=== PATIENT | female | born 1990 | race American Indian/Alaskan Native ===

== ENCOUNTER 2016-09-24 16:23 | Emergency (ER) | payer MEDICAID ==
[2016-09-24 17:48] LABS: Bilirubin,Urine NEG (Negative); Blood,Urine NEG (Negative); Ketones,Urine NEG (Negative); Leukocyte Esterase,Urine MOD (Negative); Mucus,Urine FEW /HPF; Nitrite,Urine NEG (Negative); Protein,Urine <15 mg/dL mg/dL (Negative); Urobilinogen,Urine < 2.0 mg/dL (<2.0)
--- NOTE | 2016-09-24 22:48 | Emergency Department Report ---
HPI - General Chief Complaint: Urogenital-Female Time Seen by Provider: 09/24/16 22:41 - HPI HPI: Patient is a 28-year-old female presents to the ED complaining of vaginal discharge with foul odor times one week. Patient describes discharge as white, creamy consistency. She denies any vaginal lesions or pain. She states last menstrual period was 2 weeks ago. Patient reports recent unprotected sex with her friend. She found that recently that her friend is cheating on her. Patient states she noticed a couple of the urine is a bit off and she has noticed a foul order with the discharge. Patient denies any fever, chills, nausea or vomiting vaginal itching, dysuria, vaginal bleeding, dyspareunia. 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 - Surgical History Past Surgical History?: Yes Additional Surgical History: Left lobectomy, Left kidney removal - Social History Smoking Status: Never Smoker Substance Use Type: Non Opiate Pain, Prescribed - Medications Home Medications: Home Medications Medication Instructions Recorded Confirmed Last Taken Type Erythromycin [Erythromycin Ophth 0 gm OS ONCE #1 tube 06/07/15 Unknown Rx Oint] Ciprofloxacin HCl [Ciprofloxacin 500 mg PO BID #14 tablet 05/25/16 Unknown Rx TAB] metroNIDAZOLE [Flagyl TAB] 500 mg PO ONCE #4 tab 09/24/16 Unknown Rx ED Review of Systems ROS: Stated complaint: POSS STD Other details as noted in HPI Constitutional: denies: chills, fever Eyes: denies: eye pain, eye discharge, vision change ENT: denies: ear pain, throat pain Respiratory: denies: cough, shortness of breath, wheezing Cardiovascular: denies: chest pain, palpitations Endocrine: no symptoms reported Gastrointestinal: denies: abdominal pain, nausea, diarrhea Genitourinary: denies: urgency, dysuria, discharge Musculoskeletal: denies: back pain, joint swelling, arthralgia Skin: denies: rash, lesions Neurological: denies: headache, weakness, paresthesias Psychiatric: denies: anxiety, depression Hematological/Lymphatic: denies: easy bleeding, easy bruising Physical Exam - Physical Exam Vital Signs: Vital Signs 09/24/16 16:43 Temperature 97.9 F Pulse Rate 81 Respiratory 16 Rate Blood Pressure 116/70 O2 Sat by Pulse 100 Oximetry Physical Exam: GENERAL: Alert and oriented x3, no apparent distress, Normal Gait, atraumatic. HEAD: Head is normocephalic and a-traumatic. MOUTH:Mouth is well hydrated and without lesions. Patent airways. NECK: Supple. Non edematous, No carotid bruits. No lymphadenopathy or thyromegaly. LUNGS: Symetrical with respiration, No wheezing, no rales or crackles, CTAB. HEART: S1, S2 present, regular rate and rhythm without murmur, no rubs, no gallops. ABDOMEN: No organomegaly was noted,Positive bowel sounds, soft, and non- distended. . Nontender to palpation on all Quadrants, NO CVA tenderness. GENITOURINARY: External genitalia without erythema, exudate or discharge. Vaginal vault is with mild discharge. Cervix is of normal color without lesion. Cervical os is closed. No bleeding noted. Uterus is noted to be of normal size and nontender. Mild cervical motion tenderness. No masses are palpated. The adnexa are without masses or tenderness. NEUROLOGIC: No focal Deficit, Cranial nerves II through XII are grossly intact. No loss of sensation, PSYCHIATRIC: Mood is congruent with affect, denies suicidal or homicidal ideations. SKIN: Warm and dry, No lesions, No ulceration or induration present. ED Course Vital Signs 09/24/16 16:43 Temperature 97.9 F Pulse Rate 81 Respiratory 16 Rate Blood Pressure 116/70 O2 Sat by Pulse 100 Oximetry ED Medical Decision Making - Medical Decision Making 26-year-old female presents with possible STD infection Urinalysis, urine , wet prep, Chlamydia and gonorrhea cultures sent. Urinalysis shows leukorrhea, urine test negative. Wet prep shows many PMNs. Discussed findings with patient. Discussed patient needed to go to health department for further STD screening. Discussed empiric STD treatment today ED. Patient gave in storage and 50 mg of Rocephin IM and 1000mg of Azithro Discussed partner knowledge and treatment. Vital signs stable. Patient is in no acute distress Dicsused with patient no intercourse with her partner until partner has been treated otherwise reinfection [place] occur. 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 Patient verbalization understands and will follow-up. Critical care attestation.: If time is entered above; I have spent that time in minutes in the direct care of this critically ill patient, excluding procedure time. ED Disposition Clinical Impression: STD exposure, Bacterial vaginosis Disposition: DISCHARGED TO HOME OR SELFCARE Is pt being admited?: No Does the pt Need Aspirin: No Condition: Stable Instructions: Sexually Transmitted Diseases (ED), Safe Sex (ED), Bacterial Vaginosis (ED) Prescriptions: metroNIDAZOLE [Flagyl TAB] 500 mg PO ONCE #4 tab Referrals: PRIMARY CARE, [Primary Care Provider] - 3-5 Days [facility] [Outside] - 3-5 Days [facility] [Outside] - 3-5 Days [facility] [Outside] - 3-5 Days Forms: Work/School Release Form(ED), STI Treatment and Prevention Time of Disposition: 00:42
[2016-09-24] MEDS ORDERED: ROCEPHIN IM ONE (23:15)
[2016-09-24] MEDS ORDERED: XYLOCAINE 1% MPF 5 mL INFILTRATI ONE (23:15)
[2016-09-24] MEDS ORDERED: ZITHROMAX PO ONE (23:15)
[2016-09-24 23:16] VITALS: BP 122/76
== END 2016-09-25 00:42 | disposition home or self-care (01) ==
LOC: ED 16:23
DX: N76.0 Acute vaginitis (principal); B96.89 Other specified bacterial agents as the cause of diseases classified elsewhere; Z20.2 Contact with and (suspected) exposure to infections with a predominantly sexual mode of transmission; F32.9 Major depressive disorder, single episode, unspecified; F90.9 Attention-deficit hyperactivity disorder, unspecified type
CPT/HCPCS: 81001; 81025; 87210; 96372; 99284; J0696

== ENCOUNTER 2020-03-05 16:46 | Emergency (ER) | payer MEDICAID, OTHER ==
--- NOTE | 2020-03-05 17:32 | Emergency Department Report ---
Blank Doc - Documentation Documentation: 29-year-old female that presents with some vaginal spotting and pelvic pain s/p fall. This initial assessment/diagnostic orders/clinical plan/treatment(s) is/are subject to change based on patient's health status, clinical progression and re- assessment by fellow clinical providers in the ED. Further treatment and workup at subsequent clinical providers discretion. Patient/guardians urged not to elope from the ED as their condition may be serious if not clinically assessed and managed. Initial orders include: 1- Patient sent to [facility] for further evaluation and treatment 2- labs 3- UA 4- US OB
[2020-03-05 17:33] VITALS: BP 99/43
[2020-03-05 18:16] LABS: Basophils % (Auto) 0.4 % (0.0-1.8); Eosinophils # (Auto) 0.1 K/mm3 (0.0-0.4); Eosinophils % (Auto) 0.7 % (0.0-4.3); Hemoglobin 12.5 gm/dl (10.1-14.3); Lymphocytes % (Auto) 43.4 % (13.4-35.0); Mean Corpuscular HGB Conc 35 % (30-34); Mean Corpuscular Volume 96 fl (79-97); Monocytes # (Auto) 0.5 K/mm3 (0.0-0.8); Monocytes % (Auto) 7.9 % (0.0-7.3); Platelet Count 226 K/mm3 (140-440); Red Blood Count 3.75 M/mm3 (3.65-5.03); Red Cell Distribution Width 13.5 % (13.2-15.2)
--- NOTE | 2020-03-05 21:00 | Ultrasound Report ---
Early obstetrical ultrasound INDICATION: Pelvic pain TECHNIQUE: Transabdominal and endovaginal FINDINGS: Uterus measures 8.3 cm in length. A fundal intrauterine is noted with pole and yolk sac seen. Cardiac activity was documented with heart rate of 130 bpm. Estimated gestat ional age by crown-rump length is 5 weeks 6 days. No obvious abnormalities are seen of the sac or con tents. Right ovary appears within normal limits and measures 2.8 cm in length. Left ovary is mildly prominen t at 4 cm length and shows small cysts measuring up to 11 mm. Ovarian flow is noted bilaterally. Small amount of nonspecific free fluid is seen in the cul-de-sac. IMPRESSION: Normal-appearing early intrauterine Signer Name: Terrell Hickman MD Signed: 03/05/2020 8:55 PM Workstation Name: [id number]
== END 2020-03-05 22:52 | disposition left against medical advice (07) ==
LOC: ED 16:46
DX: O26.851 Spotting complicating pregnancy, first trimester (principal); Z53.21 Procedure and treatment not carried out due to patient leaving prior to being seen by health care provider
CPT/HCPCS: 36415; 76801; 76817; 84702; 85025; 86900; 86901

== ENCOUNTER 2020-03-26 18:58 | Emergency (ER) | payer MEDICAID ==
[2020-03-26 19:19] VITALS: BP 113/60
[2020-03-26 20:10] LABS: Basophils # (Auto) 0.1 K/mm3 (0.0-0.1); Basophils % (Auto) 0.7 % (0.0-1.8); Eosinophils % (Auto) 0.5 % (0.0-4.3); Hematocrit 35.9 % (30.3-42.9); Lymphocytes # (Auto) 2.5 K/mm3 (1.2-5.4); Lymphocytes % (Auto) 26.7 % (13.4-35.0); Mean Corpuscular HGB Conc 33 % (30-34); Mean Corpuscular Volume 99 fl (79-97); Monocytes # (Auto) 0.7 K/mm3 (0.0-0.8); Monocytes % (Auto) 7.8 % (0.0-7.3); Platelet Count 220 K/mm3 (140-440); Red Blood Count 3.63 M/mm3 (3.65-5.03); Red Cell Distribution Width 13.6 % (13.2-15.2)
[2020-03-26 21:13] LABS: Bilirubin,Urine NEG (Negative); Blood,Urine NEG (Negative); Calcium Oxalate Crystals,Urine 1+; Color,Urine Yellow (Yellow); Protein,Urine <15 mg/dL mg/dL (Negative); Urobilinogen,Urine < 2.0 mg/dL (<2.0)
--- NOTE | 2020-03-26 22:58 | Ultrasound Report ---
OBSTETRICAL ULTRASOUND. HISTORY: Abdominal pain. FINDINGS: Imaging was performed transabdominally. A single viable intrauterine is dated 8 w eeks 4 days. heart tones are 171 bpm. No complication identified. The right and left ovaries are nonvisualized. Negative for adnexal mass or fluid. IMPRESSION: 1. Single viable intrauterine dated 8 weeks 4 days. 2. No adnexal abnormality. Signer Name: Mina Bello MD Signed: 03/26/2020 10:53 PM Workstation Name: [id number]
--- NOTE | 2020-03-26 23:03 | Emergency Department Report ---
ED Abdominal Pain HPI - General Chief Complaint: Abdominal Pain Stated Complaint: 8 WKS /BACK PAIN Time Seen by Provider: 03/26/20 22:35 Source: patient Mode of arrival: Ambulatory Limitations: No Limitations - History of Present Illness Initial Comments: Patient is a 29-year-old female who presents for left flank pain times 2 days. Patient states she is 8 weeks she is G2, . 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 Patient denies abnormal vaginal discharge, there is no dysuria, frequency ,urgency, no hematuria. There is been no fever or chills. Symptoms are descri bed at 4/10 cramping. Patient is tolerating p.o. intake at this time there has been no nausea or vomiting. Patient denies concern for STI. MD Complaint: flank pain Migration to: no migration - Related Data Previous Rx's Medication Instructions Recorded Last Taken Type Erythromycin [Erythromycin Ophth 0 gm OS ONCE #1 tube 06/07/15 Unknown Rx Oint] Ciprofloxacin HCl [Ciprofloxacin 500 mg PO BID #14 tablet 05/25/16 Unknown Rx TAB] metroNIDAZOLE [Flagyl TAB] 500 mg PO ONCE #4 tab 09/24/16 Unknown Rx Ketorolac [Toradol] 10 mg PO Q6H PRN #14 tablet 01/30/20 Unknown Rx Methocarbamol [Robaxin] 500 mg PO Q8HR #20 tablet 01/30/20 Unknown Rx Acetaminophen [Acetaminophen TAB] 650 mg PO Q6HR PRN #30 tablet 03/26/20 Unknown Rx Allergies Allergy/AdvReac Type Severity Reaction Status Date / Time No Known Allergies Allergy Unverified 06/07/15 16:06 ED Review of Systems ROS: Stated complaint: 8 WKS /BACK PAIN Other details as noted in HPI Constitutional: denies: chills, fever Eyes: denies: eye pain, eye discharge, vision change ENT: denies: ear pain, throat pain Respiratory: denies: cough, shortness of breath, wheezing Cardiovascular: denies: chest pain, palpitations Endocrine: no symptoms reported Gastrointestinal: abdominal pain (left flank), vomiting. 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 - Surgical History Past Surgical History?: Yes Additional Surgical History: Left lobectomy, Left kidney removal - Social History Smoking Status: Never Smoker Substance Use Type: None - Medications Home Medications: Home Medications Medication Instructions Recorded Confirmed Last Taken Type Erythromycin [Erythromycin Ophth 0 gm OS ONCE #1 tube 06/07/15 Unknown Rx Oint] Ciprofloxacin HCl [Ciprofloxacin 500 mg PO BID #14 tablet 05/25/16 Unknown Rx TAB] metroNIDAZOLE [Flagyl TAB] 500 mg PO ONCE #4 tab 09/24/16 Unknown Rx Ketorolac [Toradol] 10 mg PO Q6H PRN #14 tablet 01/30/20 Unknown Rx Methocarbamol [Robaxin] 500 mg PO Q8HR #20 tablet 01/30/20 Unknown Rx Acetaminophen [Acetaminophen TAB] 650 mg PO Q6HR PRN #30 tablet 03/26/20 Unknown Rx ED Physical Exam - General Limitations: No Limitations General appearance: alert, in no apparent distress - Head Head exam: Present: atraumatic, normocephalic - Eye Eye exam: Present: normal appearance - ENT ENT exam: Present: mucous membranes moist - Neck Neck exam: Present: normal inspection, full ROM. Absent: tenderness - Respiratory Respiratory exam: Present: normal lung sounds bilaterally. Absent: respiratory distress, wheezes, stridor, chest wall tenderness - Cardiovascular Cardiovascular Exam: Present: regular rate, normal rhythm, normal heart sounds. Absent: systolic murmur, diastolic murmur, rubs, gallop - GI/Abdominal GI/Abdominal exam: Present: soft, normal bowel sounds. Absent: distended, tenderness, guarding, rebound, rigid, bruit, hernia - Rectal Rectal exam: Present: deferred - External exam: Present: other (exam deferred by patient ) - Extremities Exam Extremities exam: Present: normal inspection, normal capillary refill. Absent: pedal edema - Back Exam Back exam: Present: normal inspection, full ROM. Absent: tenderness, CVA tenderness (R), CVA tenderness (L) - Neurological Exam Neurological exam: Present: alert, oriented X3, normal gait - Psychiatric Psychiatric exam: Present: normal affect, normal mood - Skin Skin exam: Present: warm, dry, intact, normal color. Absent: rash ED Course Vital Signs 03/26/20 19:14 Temperature 98.3 F Pulse Rate 92 H Respiratory 18 Rate Blood Pressure 113/60 O2 Sat by Pulse 99 Oximetry ED Medical Decision Making - Lab Data Result diagrams: 03/26/20 19:54 Labs 03/26/20 03/26/20 03/26/20 19:54 19:54 Unknown WBC 9.3 RBC 3.63 L Hgb 12.0 Hct 35.9 MCV 99 H MCH 33 H MCHC 33 RDW 13.6 Plt Count 220 Lymph % (Auto) 26.7 [place] % (Auto) 7.8 H Eos % (Auto) 0.5 Baso % (Auto) 0.7 Lymph # 2.5 [place] # 0.7 Eos # 0.0 Baso # 0.1 Seg Neutrophils % 64.3 Seg Neutrophils # 6.0 HCG, Quant [id number] H Urine Color Yellow Urine Turbidity Clear Urine pH 5.0 Ur Specific [place] 1.027 Urine Protein <15 mg/dl Urine Glucose (UA) Neg Urine Ketones Neg Urine Blood Neg Urine Nitrite Neg Urine Bilirubin Neg Urine Urobilinogen < 2.0 Ur Leukocyte Esterase Neg Urine WBC (Auto) 1.0 Urine RBC (Auto) 3.0 U Epithel Cells (Auto) 7.0 Calcium Oxalate Crystal 1+ - Radiology Data Radiology results: report reviewed, image reviewed Findings Reporting MD: Mina Bello Dictation Time: March 26, 2020 21:53 Canceling Machine Operator: Not available Professor Of Pathology Date: OBSTETRICAL ULTRASOUND. HISTORY: Abdominal pain. FINDINGS: Imaging was performed transabdominally. A single viable intrauterine is dated 8 weeks 4 days. heart tones are 171 bpm. No compl ication identified. The right and left ovaries are nonvisualized. Negative for adnexal mass or f luid. IMPRESSION: 1. Single viable intrauterine dated 8 weeks 4 days. 2. No adnexal abnormality. Signer Name: Mina Bello MD Signed: 03/26/2020 9:53 PM Workstation Name: [id number] - Medical Decision Making US: Single IUP , 8weeks and 4 days , FHR: 171 bpm, no abnormalities, HC, pt denies concern for STI, plan: follow up with OBGYN in 2-3 days, return to ed if symptoms worsen. Pt verbalized agreement and understanding of same. Critical care attestation.: If time is entered above; I have spent that time in minutes in the direct care of this critically ill patient, excluding procedure time. ED Disposition Clinical Impression: Abdominal pain during in first trimester Disposition: TO HOME OR SELFCARE Is pt being admited?: No Does the pt Need Aspirin: No Condition: Stable Instructions: (ED), Abdominal Pain (ED) Prescriptions: Acetaminophen [Acetaminophen TAB] 650 mg PO Q6HR PRN #30 tablet PRN Reason: Pain Referrals: LORNA SEPULVEDA MD [Staff Physician] - 2-3 Days Forms: Work/School Release Form(ED) Time of Disposition: 23:11
== END 2020-03-26 23:40 | disposition home or self-care (01) ==
LOC: ED 18:58
DX: O26.891 Other specified pregnancy related conditions, first trimester (principal); R10.9 Unspecified abdominal pain; F32.9 Major depressive disorder, single episode, unspecified; J45.909 Unspecified asthma, uncomplicated; Z3A.01 Less than 8 weeks gestation of pregnancy; Z90.89 Acquired absence of other organs; Z98.890 Other specified postprocedural states; Z79.2 Long term (current) use of antibiotics; Z79.899 Other long term (current) drug therapy
CPT/HCPCS: 36415; 76801; 76802; 81001; 84702; 85025

== ENCOUNTER 2020-04-11 09:23 | Emergency (ER) | payer MEDICAID ==
[2020-04-11 09:31] VITALS: BP 115/54
--- NOTE | 2020-04-11 10:47 | Emergency Department Report ---
ED General Adult HPI - General Chief complaint: Fall Stated complaint: 12 WKS /PAIN Time Seen by Provider: 04/11/20 10:39 Source: patient Mode of arrival: Ambulatory Limitations: No Limitations - History of Present Illness Initial comments: 29 y/o female that is 12 weeks comes in for left low and lower abd pain. since yesterday had a slip this moning on a wet floor at home. Denies any vaginal bleeding, no vaginal discharge. Having increase in urination but no burning. LMP 01/12/20. Complication with a 24 week delivery 8 years ago. - Related Data Previous Rx's Medication Instructions Recorded Last Taken Type Erythromycin [Erythromycin Ophth 0 gm OS ONCE #1 tube 06/07/15 Unknown Rx Oint] Ciprofloxacin HCl [Ciprofloxacin 500 mg PO BID #14 tablet 05/25/16 Unknown Rx TAB] metroNIDAZOLE [Flagyl TAB] 500 mg PO ONCE #4 tab 09/24/16 Unknown Rx Ketorolac [Toradol] 10 mg PO Q6H PRN #14 tablet 01/30/20 Unknown Rx Methocarbamol [Robaxin] 500 mg PO Q8HR #20 tablet 01/30/20 Unknown Rx Acetaminophen [Acetaminophen TAB] 650 mg PO Q6HR PRN #30 tablet 03/26/20 Unknown Rx Allergies Allergy/AdvReac Type Severity Reaction Status Date / Time No Known Allergies Allergy Unverified 06/07/15 16:06 ED Review of Systems ROS: Stated complaint: 12 WKS /PAIN Other details as noted in HPI ED Past Medical Hx - Past Medical History Previous Medical History?: Yes Hx Psychiatric Treatment: Yes (depression, ADHD) Hx Asthma: Yes Additional medical history: 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 - Surgical History Past Surgical History?: Yes Additional Surgical History: Left lobectomy, Left kidney removal - Social History Smoking Status: Never Smoker Substance Use Type: None - Medications Home Medications: Home Medications Medication Instructions Recorded Confirmed Last Taken Type Erythromycin [Erythromycin Ophth 0 gm OS ONCE #1 tube 06/07/15 Unknown Rx Oint] Ciprofloxacin HCl [Ciprofloxacin 500 mg PO BID #14 tablet 05/25/16 Unknown Rx TAB] metroNIDAZOLE [Flagyl TAB] 500 mg PO ONCE #4 tab 09/24/16 Unknown Rx Ketorolac [Toradol] 10 mg PO Q6H PRN #14 tablet 01/30/20 Unknown Rx Methocarbamol [Robaxin] 500 mg PO Q8HR #20 tablet 01/30/20 Unknown Rx Acetaminophen [Acetaminophen TAB] 650 mg PO Q6HR PRN #30 tablet 03/26/20 Unknown Rx ED Physical Exam - General Limitations: No Limitations General appearance: alert, in no apparent distress - Head Head exam: Present: atraumatic, normocephalic - Eye Eye exam: Present: normal appearance - ENT ENT exam: Present: mucous membranes moist - Neck Neck exam: Present: normal inspection - GI/Abdominal GI/Abdominal exam: Present: soft, tenderness (left lower quadrant) - Extremities Exam Extremities exam: Present: normal inspection - Back Exam Back exam: Present: normal inspection - Neurological Exam Neurological exam: Present: alert, oriented X3, normal gait - Psychiatric Psychiatric exam: Present: normal affect, normal mood - Skin Skin exam: Present: warm, dry, intact, normal color. Absent: rash ED Course Vital Signs 04/11/20 09:30 Temperature 98.4 F Pulse Rate 77 Respiratory 18 Rate Blood Pressure 115/54 O2 Sat by Pulse 98 Oximetry ED Medical Decision Making - Radiology Data Radiology results: report reviewed Print Report Referring Physician:TEAGAN JONESPatient Name:HILARY ACEVEDOPatient ID:[id number] of :[id number]:FemaleAccession:[id number] Date:1029-45-30Citqxq Status:Finalized Findings [place] [id number] Ultrasound Report Signed Patient: HILARY ACEVEDO MR#: [id number] : 1990 Acct:[id number] Age/Sex: 29 / F ADM Date: 04/11/20 Loc: ED Attending Dr: Ordering Physician: HOLLY COLLAZO Date of Service: 04/11/20 Procedure(s): US OB <= 14 weeks fetus Accession Number(s): [id number] cc: HOLLY COLLAZO ULTRASOUND OBSTETRIC INDICATION / CLINICAL INFORMATION: lower pelvic pain and fall. TECHNIQUE: Transabdominal. COMPARISON: OB ultrasound 03/26/2020 FINDINGS: GESTATIONAL SAC: Well-defined oval shape and intrauterine in location. YOLK SAC: No significant abnormality. EMBRYO/FETUS: No significant abnormality. - [place]-Rump Length 11 weeks, 3 day(s). - Heart Rate, beats per minute (if present) = 160 ADNEXA: Right ovary within normal limits. Left ovary not visualized secondary to bowel gas FREE FLUID: None. ADDITIONAL FINDINGS: Cervical length 4 cm IMPRESSION: 1. Single, living intrauterine with estimated sonographic age of 11 weeks, 3 day(s). Signer Name: Demetrius Caldwell MD Signed: 04/11/2020 1:57 PM Workstation Name: [id number] RegistryKhaiHW[facility] - Medical Decision Making 29 y/o female that is 12 weeks comes in for left low and lower abd pain. since yesterday had a slip this moning on a wet floor at home. Denies any vaginal bleeding, no vaginal discharge. Having increase in urination but no burning. LMP 01/12/20. Complication with a 24 week delivery 8 years ago. Ua, US. Labs are all stable ultrasound shows 11-week 5-day old fetus and intrauterine gestation. No other complications or concerns. 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 Critical care attestation.: If time is entered above; I have spent that time in minutes in the direct care of this critically ill patient, excluding procedure time. ED Disposition Clinical Impression: Abdominal pain Disposition: DC-01 TO HOME OR SELFCARE Is pt being admited?: No Does the pt Need Aspirin: No Condition: Stable Instructions: Acute Abdominal Pain (ED) Additional Instructions: Labs are stable no signs of infection ultrasound shows you are 11 weeks and 5 days no other abnormalities. 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
[2020-04-11 12:01] LABS: Bilirubin,Urine NEG (Negative); Blood,Urine NEG (Negative); Color,Urine Yellow (Yellow); Protein,Urine <15 mg/dL mg/dL (Negative); Urobilinogen,Urine < 2.0 mg/dL (<2.0)
--- NOTE | 2020-04-11 14:01 | Ultrasound Report ---
ULTRASOUND OBSTETRIC INDICATION / CLINICAL INFORMATION: lower pelvic pain and fall. TECHNIQUE: Transabdominal. COMPARISON: OB ultrasound 03/26/2020 FINDINGS: GESTATIONAL SAC: Well-defined oval shape and intrauterine in location. YOLK SAC: No significant abnormality. EMBRYO/FETUS: No significant abnormality. - [place]-Rump Length 11 weeks, 3 day(s). - Heart Rate, beats per minute (if present) = 160 ADNEXA: Right ovary within normal limits. Left ovary not visualized secondary to bowel gas FREE FLUID: None. ADDITIONAL FINDINGS: Cervical length 4 cm IMPRESSION: 1. Single, living intrauterine with estimated sonographic age of 11 weeks, 3 day(s). Signer Name: Demetrius Caldwell MD Signed: 04/11/2020 1:57 PM Workstation Name: [id number]
== END 2020-04-11 14:20 | disposition home or self-care (01) ==
LOC: ED 09:23
DX: O26.891 Other specified pregnancy related conditions, first trimester (principal); R10.32 Left lower quadrant pain; Z3A.12 12 weeks gestation of pregnancy; F32.9 Major depressive disorder, single episode, unspecified; J45.909 Unspecified asthma, uncomplicated; Z98.890 Other specified postprocedural states; Z79.2 Long term (current) use of antibiotics; Z79.899 Other long term (current) drug therapy
CPT/HCPCS: 76801; 81001

== ENCOUNTER 2020-07-09 21:28 | Outpatient (CLI) | payer MEDICAID ==
[2020-07-09 22:33] VITALS: BP 132/60
[2020-07-09] MEDS ORDERED: LACTATED RINGERS 1,000 ML IV ONE (22:35)
[2020-07-09 23:00] LABS: Amphetamine Screen,Urine PRESUMPTIVE NEGATIVE; Benzodiazepines Screen,Urine PRESUMPTIVE NEGATIVE; Cannabinoid Screen,Urine PRESUMPTIVE NEGATIVE; Cocaine Screen,Urine PRESUMPTIVE NEGATIVE; Methadone Screen,Urine PRESUMPTIVE NEGATIVE; Opiate Screen,Urine PRESUMPTIVE NEGATIVE
[2020-07-09 23:04] LABS: Bacteria,Urine 3+ /HPF (Negative); Bilirubin,Urine NEG (Negative); Blood,Urine NEG (Negative); Color,Urine Yellow (Yellow); Mucus,Urine FEW /HPF
[2020-07-09] MEDS ORDERED: LIDOCAINE-MPF (1%) 10 MG/1 ML VIAL 5 ML INFILTRATI ONE (23:41)
== END 2020-07-10 00:10 | disposition home or self-care (01) ==
LOC: TRG 21:28 → APU 22:04 → TRG 07-10 00:10
PROVIDERS: ATTEND Obstetrics & Gynecology
DX: O26.892 Other specified pregnancy related conditions, second trimester (principal); M54.9 Dorsalgia, unspecified; R07.9 Chest pain, unspecified; M79.602 Pain in left arm; M79.601 Pain in right arm; O99.512 Diseases of the respiratory system complicating pregnancy, second trimester; J45.909 Unspecified asthma, uncomplicated; Z3A.23 23 weeks gestation of pregnancy
CPT/HCPCS: 59025; 80307; 81001; 87086; 96372; J0696

== ENCOUNTER 2020-08-10 00:01 | Outpatient (CLI) | payer MEDICAID ==
[2020-08-10 00:24] VITALS: BP 120/71
[2020-08-10] MEDS ORDERED: LACTATED RINGERS 1,000 ML IV ONE ×2 (00:39→01:11)
[2020-08-10 00:54] LABS: Amorphous Crystals,Urine Few; Bacteria,Urine 1+ /HPF (Negative); Bilirubin,Urine NEG (Negative); Blood,Urine NEG (Negative); Color,Urine Yellow (Yellow); Mucus,Urine FEW /HPF; Protein,Urine <15 mg/dL mg/dL (Negative)
[2020-08-10 00:59] LABS: Amphetamine Screen,Urine PRESUMPTIVE NEGATIVE; Benzodiazepines Screen,Urine PRESUMPTIVE NEGATIVE; Cannabinoid Screen,Urine PRESUMPTIVE NEGATIVE; Cocaine Screen,Urine PRESUMPTIVE NEGATIVE; Methadone Screen,Urine PRESUMPTIVE NEGATIVE; Opiate Screen,Urine PRESUMPTIVE NEGATIVE
[2020-08-10] MEDS ORDERED: NIFEdipine*For Tocolysis only* 10 MG CAPSULE PO ONE (03:41)
== END 2020-08-10 04:52 | disposition home or self-care (01) ==
LOC: TRG 00:01 → APU 00:02 → TRG 04:52
PROVIDERS: ATTEND Obstetrics & Gynecology
DX: O26.893 Other specified pregnancy related conditions, third trimester (principal); R10.9 Unspecified abdominal pain; O47.03 False labor before 37 completed weeks of gestation, third trimester; W19.XXXA Unspecified fall, initial encounter; Y93.89 Activity, other specified; Y92.89 Other specified places as the place of occurrence of the external cause; Y99.8 Other external cause status; Z3A.28 28 weeks gestation of pregnancy
CPT/HCPCS: 59025; 80307; 81001; 96360; 96361; J7120

== ENCOUNTER 2020-09-14 08:18 | Observation (INO) | payer MEDICAID ==
[2020-09-14] MEDS ORDERED: LACTATED RINGERS 500 ML IV ONE (09:00)
--- NOTE | 2020-09-14 09:26 | History and Physical Report ---
History of Present Illness Date of examination: 09/14/20 History of present illness: PT is a 30-year-old who is at 33 weeks today who presents status post gross rupture of membrane clear. Patient is a walk-in patient but has had care elsewhere. Patient notes she was recently hospitalized and was given betamethasone and was 2 cm dilated. Patient was stable and as result was sent home. Patient denies any other issues during this . Pt also had a cerclage placed in apr and that was recently removed as well. Prental notes a single umbilical artery as well. Rub nonimm Asthma h/o Wilms tumor and kidney resection on the right and partial lung resection on the right. Past History Past Medical History: asthma, other (Patient notes she has 1 kidney and one lung) Past Surgical History: other (nephrectomy right and partial lung resection) - Obstetrical History Expected Date of Delivery: 11/02/20 Actual Gestation: 33 Week(s) 0 Day(s) : 4 Number of Pregnancies: 1 Spontaneous Abortions: 1 Induced : 1 Number of Living Children: 1 Medications and Allergies Allergies Allergy/AdvReac Type Severity Reaction Status Date / Time No Known Allergies Allergy Unverified 06/07/15 16:06 Home Medications Medication Instructions Recorded Confirmed Last Taken Type Albuterol Sulfate 108 mcg INHALATION PRN 09/14/20 09/14/20 09/13/20 19:00 History 1 puff Ferrous Sulfate 325 mg PO DAILY 09/14/20 09/14/20 09/13/20 10:00 History 325 Vitamin 1 tab PO DAILY 09/14/20 09/14/20 09/13/20 10:00 History Zofran TAB 8 mg SUBLINGUAL Q8HR 09/14/20 09/14/20 09/13/20 22:00 History Active Meds: Active Medications Lactated Ringer's (Lactated Ringers) 500 mls @ 999 mls/hr IV BOLUS ONE Stop: 09/14/20 09:30 Review of Systems All systems: negative (Except HPI) - Vital Signs Vital signs: Vital Signs Pulse Pulse Ox 78 99 09/14/20 08:21 09/14/20 08:21 Temp Pulse Resp BP Pulse Ox 81 137/89 99 09/14/20 08:36 09/14/20 08:22 09/14/20 08:36 - Physical Exam Abdomen: Positive: normal appearance, soft. Negative: tenderness Vulva: both: normal Vagina: Positive: normal moisture. Negative: discharge - Obstetrical Cervical Dilatation: 3 Cervical Effacement Percentage: 100 station: 0, +1 Results Result Diagrams: 09/14/20 10:00 All other labs normal. Assessment and Plan - Patient Problems (1) premature rupture of membranes (PPROM) with unknown onset of labor Status: Acute Plan to address problem: Patient with PPROM and is status post recent betamethasone injections at another hospital. We will try to obtain records. We will start antibiotics and will expectantly manage until 34 weeks. At that point, we will likely proceed with induction of labor. The plan discussed with the patient. She agrees with the plan. All questions were answered PT was seen in the morning when she was counseled and plan was started. AT 1400, I was informed that pt left AMA so she could go to [place].
--- NOTE | 2020-09-14 09:49 | Ultrasound Report ---
Obstetrical ultrasound limited INDICATION: Assess presentation FINDINGS: There is a single intrauterine in the cephalic position. LAUREL measured 4.0 cm. The heart rate is 153 bpm. IMPRESSION: Cephalic position and other incidental findings as noted above including decreased LAUREL me asuring 4.0 cm. Signer Name: Román Harris MD Signed: 09/14/2020 9:44 AM Workstation Name: [id number]
[2020-09-14] MEDS ORDERED: AZITHROMYCIN 250 MG TAB PO ONE (10:00)
[2020-09-14] MEDS ORDERED: AMPICILLIN/NS 2 GM/100 ML 2 GM/100 ML BAG IV SCH (10:00)
[2020-09-14] MEDS ORDERED: DOCUSATE SODIUM 100 MG CAP PO PRN (10:00)
[2020-09-14] MEDS ORDERED: ACETAMINOPHEN 325 MG TAB PO PRN (10:00)
[2020-09-14] MEDS ORDERED: PRENATAL VIT27-FE FUMARATE-FOLIC ACID VIT TAB PO SCH (10:00)
[2020-09-14 10:22] VITALS: BP 130/75
[2020-09-14] MEDS ORDERED: LACTATED RINGERS 1,000 ML IV SCH (11:00)
[2020-09-14 11:03] LABS: Basophils % (Auto) 0.2 % (0.0-1.8); Eosinophils # (Auto) 0.1 K/mm3 (0.0-0.4); Eosinophils % (Auto) 0.6 % (0.0-4.3); Hematocrit 35.9 % (30.3-42.9); Hemoglobin 12.1 gm/dl (10.1-14.3); Lymphocytes # (Auto) 2.4 K/mm3 (1.2-5.4); Lymphocytes % (Auto) 25.8 % (13.4-35.0); Mean Corpuscular HGB Conc 34 % (30-34); Mean Corpuscular Volume 97 fl (79-97); Monocytes # (Auto) 0.7 K/mm3 (0.0-0.8); Monocytes % (Auto) 8.1 % (0.0-7.3); Platelet Count 284 K/mm3 (140-440)
--- NOTE | 2020-09-14 14:22 | Ultrasound Report ---
ULTRASOUND BIOPHYSICAL PROFILE INDICATION: PPROM. COMPARISON: None available. FINDINGS: heart rate is 138 beats per minute. breathing movement = 2 Gross body movement = 2 tone = 2 Qualitative amniotic fluid volume = 0 IMPRESSION: biophysical profile = 12/15 Signer Name: Pieter Garcia Jr, MD Signed: 09/14/2020 2:17 PM Workstation Name: [id number]
== END 2020-09-14 14:12 | disposition left against medical advice (07) ==
LOC: TRG 08:18 → APU 08:20 → LD 10:15 → TRG 10:49 → INTOOBSV 10:51 → LD 10:51
PROVIDERS: ADMIT Obstetrics & Gynecology; ATTEND Obstetrics & Gynecology
DX: O42.913 Preterm premature rupture of membranes, unspecified as to length of time between rupture and onset of labor, third trimester (principal); J45.909 Unspecified asthma, uncomplicated; Z3A.33 33 weeks gestation of pregnancy; Z98.890 Other specified postprocedural states
CPT/HCPCS: 36415; 76815; 76819; 85025; 86592; 86850; 86900; 86901; 96365; G0378; J0290; J7120; 96360

== ENCOUNTER 2021-02-07 07:51 | Day surgery (SDC) | payer MEDICAID ==
[2021-02-07] MEDS ORDERED: SODIUM CHLORIDE 0.9% 1000 ML 1,000 ML IV ONE ×2 (08:59→12:48)
--- NOTE | 2021-02-07 09:01 | Emergency Department Report ---
HPI - General Chief Complaint: Vaginal Bleeding Time Seen by Provider: 02/07/21 08:48 - HPI HPI: Room 19 The patient is a 30-year-old female present with a chief complaint of "I had a miscarriage." Patient states she was approximately 4 months and this morning passed her fetus. The patient brought the fetus with her in a basin. The patient states she was scheduled to get a cerclage next week. 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 - Surgical History Past Surgical History?: No Additional Surgical History: Left lobectomy, Left kidney removal - Family History Family history: no significant - Social History Smoking Status: Never Smoker Substance Use Type: None - Medications Home Medications: Home Medications Medication Instructions Recorded Confirmed Last Taken Type Vitamin 1 tab PO DAILY 09/14/20 09/14/20 09/13/20 10:00 History ED Review of Systems ROS: Stated complaint: VAGINAL BLEEDING Other details as noted in HPI Constitutional: no symptoms reported Eyes: denies: eye pain ENT: denies: throat pain Respiratory: no symptoms reported Cardiovascular: denies: chest pain Endocrine: no symptoms reported Gastrointestinal: denies: abdominal pain Genitourinary: abnormal menses Musculoskeletal: denies: back pain Neurological: denies: headache Physical Exam - Physical Exam Vital Signs: Vital Signs 02/07/21 02/07/21 02/07/21 08:54 08:57 09:01 Blood Pressure 128/73 124/71 O2 Sat by Pulse 99 Oximetry 02/07/21 02/07/21 02/07/21 09:30 10:00 10:31 Blood Pressure 132/63 127/59 130/67 O2 Sat by Pulse Oximetry 02/07/21 02/07/21 02/07/21 11:00 11:30 12:00 Blood Pressure 133/76 130/67 140/78 O2 Sat by Pulse Oximetry 02/07/21 12:25 Blood Pressure 150/64 O2 Sat by Pulse Oximetry Vital Signs 02/07/21 02/07/21 02/07/21 08:54 08:57 09:01 Pulse Rate Respiratory Rate Blood Pressure 128/73 124/71 O2 Sat by Pulse 99 Oximetry 02/07/21 02/07/21 02/07/21 09:30 10:00 10:31 Pulse Rate Respiratory Rate Blood Pressure 132/63 127/59 130/67 O2 Sat by Pulse Oximetry 02/07/21 02/07/21 02/07/21 11:00 11:30 12:00 Pulse Rate Respiratory Rate Blood Pressure 133/76 130/67 140/78 O2 Sat by Pulse Oximetry 02/07/21 02/07/21 02/07/21 12:25 12:55 12:56 Pulse Rate Respiratory Rate Blood Pressure 150/64 136/77 136/77 O2 Sat by Pulse 88 Oximetry 02/07/21 02/07/21 02/07/21 12:58 13:00 13:01 Pulse Rate 89 75 Respiratory 16 19 Rate Blood Pressure 136/77 136/77 112/64 O2 Sat by Pulse 99 100 100 Oximetry Physical Exam: GENERAL: The patient is well-developed well-nourished female lying on stretcher using cell phone not appearing to be in acute distress. [] HEENT: Normocephalic. Atraumatic. Extraocular motions are intact. Patient has moist mucous membranes. NECK: Supple. Trachea midline CHEST/LUNGS: Clear to auscultation. There is no respiratory distress noted. HEART/CARDIOVASCULAR: Regular. There is no tachycardia. There is no gallop rub or murmur. ABDOMEN: Abdomen is soft, nontender. Patient has normal bowel sounds. There is no abdominal distention. SKIN: There is no rash. There is no edema. There is no diaphoresis. NEURO: The patient is awake, alert, and oriented. The patient is cooperative. The patient has no focal neurologic deficits. The patient has normal speech. GCS 15 MUSCULOSKELETAL: There is no evidence of acute injury. ED Course - Consultations Consultation #1: 02/07/21 12:31 PARTS EXPEDITER paged 02/07/21 12:[address] Hicks-patient given option of medical management versus D&C and she chose D&C. Will arrange for D&C later today ED Medical Decision Making - Lab Data Result diagrams: 02/07/21 09:10 02/07/21 09:10 Laboratory Tests 02/07/21 02/07/21 02/07/21 09:10 09:10 09:10 WBC 5.2 RBC 3.66 Hgb 11.8 Hct 33.3 MCV 91 MCH 32 MCHC 35 H RDW 15.3 H Plt Count 202 Lymph % (Auto) 25.7 [place] % (Auto) 8.8 H Eos % (Auto) 0.6 Baso % (Auto) 0.3 Lymph # (Auto) 1.3 [place] # (Auto) 0.5 Eos # (Auto) 0.0 Baso # (Auto) 0.0 Seg Neutrophils % 64.6 Seg Neutrophils # 3.4 Sodium 137 Potassium 4.1 Chloride 104.0 Carbon Dioxide 21 L Anion Gap 16 BUN 5 L Creatinine 0.4 L Estimated GFR > 60 BUN/Creatinine Ratio 13 Glucose 86 Calcium 9.6 HCG, Quant 46122 H Blood Type 02/07/21 09:10 WBC RBC Hgb Hct MCV MCH MCHC RDW Plt Count Lymph % (Auto) [place] % (Auto) Eos % (Auto) Baso % (Auto) Lymph # (Auto) [place] # (Auto) Eos # (Auto) Baso # (Auto) Seg Neutrophils % Seg Neutrophils # Sodium Potassium Chloride Carbon Dioxide Anion Gap BUN Creatinine Estimated GFR BUN/Creatinine Ratio Glucose Calcium HCG, Quant Blood Type A POSITIVE - Radiology Data Radiology results: report reviewed (Pelvic ultrasound), image reviewed (Pelvic ultrasound) [facility] [address] [id number] Ultrasound Report Signed Patient: HILARY ACEVEDO MR#: [id number] : 1990 Acct:[id number] Age/Sex: 30 / F ADM Date: 02/07/21 Loc: ED Attending Dr: Ordering Physician: GABI VELAZQUEZ MD Date of Service: 02/07/21 Procedure(s): US OB >= 14 weeks Fetus Accession Number(s): [id number] cc: GABI VELAZQUEZ MD US OB >= 14 weeks Fetus INDICATION / CLINICAL INFORMATION: Status post spontaneous . COMPARISON: 09/14/2020 FINDINGS: Uterus measures 11 cm in length. The endometrial echo complex is again at approximately 2 cm. 2 cm cyst at the cervix could be a nabothian cyst is nonspecific. Ovaries are unremarkable. No adnexal lesions. No free fluid is seen. IMPRESSION: 1. Endometrial echo complex is mildly heterogeneous and thickened. No significant flow is seen within the enlarged endometrium. However, short-term sonographic follow-up is recommended to ensure that this resolves and to exclude retained products. 2. No sonographic evidence of intrauterine . No adnexal lesions or free fluid. 3. Cystic foci near the cervix may be nabothian cysts. Signer Name: Salas Licona MD Signed: 02/07/2021 10:50 AM Workstation Name: [id number] Transcribed By: LUIS Dictated By: Salas Licona MD Electronically Authenticated By: Salas Licona MD Signed Date/Time: 02/07/21 1050 DD/ 1047 TD/TT: - Differential Diagnosis Spontaneous , incomplete Critical care attestation.: If time is entered above; I have spent that time in minutes in the direct care of this critically ill patient, excluding procedure time. ED Disposition Clinical Impression: Incomplete Disposition: -09 OP ADMIT IP TO THIS HOSP Is pt being admited?: No Does the pt Need Aspirin: No Condition: Stable Referrals: PRIMARY CARE, [Primary Care Provider] - 3-5 Days Time of Disposition: 12:50 (Awaiting OR)
[2021-02-07 09:23] LABS: Basophils % (Auto) 0.3 % (0.0-1.8); Eosinophils % (Auto) 0.6 % (0.0-4.3); Hematocrit 33.3 % (30.3-42.9); Hemoglobin 11.8 gm/dl (10.1-14.3); Lymphocytes # (Auto) 1.3 K/mm3 (1.2-5.4); Lymphocytes % (Auto) 25.7 % (13.4-35.0); Mean Corpuscular HGB Conc 35 % (30-34); Mean Corpuscular Volume 91 fl (79-97); Monocytes # (Auto) 0.5 K/mm3 (0.0-0.8); Monocytes % (Auto) 8.8 % (0.0-7.3); Platelet Count 202 K/mm3 (140-440); Red Blood Count 3.66 M/mm3 (3.65-5.03); Red Cell Distribution Width 15.3 % (13.2-15.2)
[2021-02-07] MEDS ORDERED: ONDANSETRON 4 MG/2 ML INJ IV ONE ×2 (09:34→16:56)
[2021-02-07] MEDS ORDERED: fentaNYL 100 MCG/2 ML INJ IV ONE (09:34)
[2021-02-07 09:47] LABS: Blood Urea Nitrogen 5 mg/dL (7-17); Calcium 9.6 mg/dL (8.4-10.2); Hemolysis Index 5
[2021-02-07 09:50] LABS: BUN/Creatinine Ratio 13
--- NOTE | 2021-02-07 10:55 | Ultrasound Report ---
US OB >= 14 weeks Fetus INDICATION / CLINICAL INFORMATION: Status post spontaneous . COMPARISON: 09/14/2020 FINDINGS: Uterus measures 11 cm in length. The endometrial echo complex is again at approximately 2 cm[address] at the cervix could be a nabothian cyst is nonspecific. Ovaries are unremarkable. No adnexal lesions. No free fluid is seen. IMPRESSION: 1. Endometrial echo complex is mildly heterogeneous and thickened. No significant flow is seen within the enlarged endometrium. However, short-term sonographic follow-up is recommended to ensure that th is resolves and to exclude retained products. 2. No sonographic evidence of intrauterine . No adnexal lesions or free fluid. 3. Cystic foci near the cervix may be nabothian cysts. Signer Name: Salas Licona MD Signed: 02/07/2021 10:50 AM Workstation Name: [id number]
--- NOTE | 2021-02-07 14:37 | Short Stay Summary ---
Short Stay Documentation Date of service: 02/07/21 Narrative H&P: 30-year-old who presents to the emergency department with a spontaneous delivery of a second trimester fetus. Physical exam demonstrated evidence of retained products of conception. The patient denies passing the placenta after delivery of the fetus. The patient has a history of incompetent cervix. She was scheduled to undergo placement of a cerclage. The patient noted that her was approximately 4 months along. She is recently status post a delivery in November. The patient was given the treatment option of medical therapy versus surgical management. She has elected to undergo surgical management. Will proceed with a suction dilatation and curettage. - History Principal diagnosis: Retained products of conception Past Medical History: other (Wilms tumor; incompetent cervix) Past Surgical History: , Other (Cerclage; pulmonary lobectomy; nephrectomy; exploratory laparotomy) Social history: single - Allergies and Medications Current Medications: Allergies No Known Allergies Allergy (Unverified 06/07/15 16:06) Home Medications Medication Instructions Recorded Confirmed Last Taken Type Vitamin 1 tab PO DAILY 09/14/20 09/14/20 09/13/20 10:00 History Active Medications Sodium Chloride (Nacl 0.9% 1000 Ml) 1,000 mls @ 125 mls/hr IV ONCE ONE Stop: 02/07/21 20:47 Last Admin: 02/07/21 13:08 Dose: 125 mls/hr Documented by: - Physical exam General appearance: no acute distress Integumentary: no rash HEENT: Atraumatic Lungs: Clear to auscultation Breasts: deferred - Brief post op/procedure progress note Date of procedure: 02/07/21 Pre-op diagnosis: Retained products of conception Post-op diagnosis: same Procedure: Suction dilatation and curettage Anesthesia: JEFFERY Surgeon: LORNA SEPULVEDA Estimated blood loss: other (200 mL) Pathology: list (Retained placenta) Specimen disposition: to lab Condition: stable - Hospital course Hospital course: The patient was admitted the day of surgery underwent a suction dilatation and curettage for retained placenta after delivery of a second trimester fetus that was nonviable. The patient underwent the surgery which was successful. Her postoperative course was uneventful. - Disposition Condition at discharge: Good Disposition: DC-01 TO HOME OR SELFCARE Short Stay Discharge Plan Activity: other (Pelvic rest for 2 weeks) Diet: regular Additional Instructions: Patient can schedule follow-up with Dr. Sepulveda in 2 to 4 weeks [facility] [employer] [address] [place] [address]. [place] [address] [phone] Prescriptions: Ibuprofen [Motrin] 800 mg PO Q8HR PRN #30 tablet PRN Reason: Pain , Severe (7-10) HYDROcodone/APAP 5-325 [[place] 5/325] 1 each PO Q6HR PRN #15 tablet PRN Reason: Pain
--- NOTE | 2021-02-07 14:52 | Anesthesia Consultation ---
Anesthesia Consult and Med Hx Date of service: 02/07/21 - Airway Anesthetic Teeth Evaluation: Good ROM Head & Neck: Adequate Mental/Hyoid Distance: Adequate Mallampati Class: Class II Intubation Access Assessment: Good - Pulmonary Exam CTA: Yes - Cardiac Exam Cardiac Exam: RRR - Pre-Operative Health Status ASA Pre-Surgery Classification: ASA2 Proposed Anesthetic Plan: General - Pulmonary Hx Asthma: Yes (H/o Wilms Tumor, lobectomy ) COPD: No Hx Pneumonia: No - Cardiovascular System Hx Hypertension: No Hx Pacemaker: No Hx Internal Defibrillator: No - Central Nervous System Hx Seizures: No Hx Psychiatric Problems: No - Endocrine Hx Renal Disease: Yes (one kidney has been removed) Hx End Stage Renal Disease: No Hx Hypothyroidism: No Hx Hyperthyroidism: No - Hematic Hx Anemia: No Hx Sickle Cell Disease: No - Other Systems Hx Alcohol Use: No Hx Cancer: Yes (wilms tumor)
--- NOTE | 2021-02-07 14:53 | Anesthesia Day of Surgery ---
Anesthesia Day of Surgery - Day of Surgery Patient Examined: Yes Patient H&P Reviewed: Yes Patient is NPO: Yes
[2021-02-07] MEDS ORDERED: KETOROLAC 30 MG/1 ML INJ ONE (14:56)
[2021-02-07] MEDS ORDERED: fentaNYL 100 MCG/2 ML INJ ONE (14:56)
[2021-02-07] MEDS ORDERED: MIDAZOLAM 2 MG/2 ML INJ ONE (14:56)
[2021-02-07] MEDS ORDERED: LIDOCAINE PF 100 MG/5 ML (CARDIAC SYRINGE) IV ONE (14:56)
[2021-02-07] MEDS ORDERED: propofoL 200 MG/20 ML VIAL IV ONE (14:57)
[2021-02-07] MEDS ORDERED: ONDANSETRON 4 MG/2 ML INJ ONE ×2 (15:00→16:52)
[2021-02-07] MEDS ORDERED: dexAMETHasone 20 MG/5 ML VIAL ONE (15:00)
[2021-02-07] MEDS ORDERED: MORPHINE 2 MG/1 ML INJ IV PRN (15:30)
[2021-02-07] MEDS ORDERED: METOCLOPRAMIDE 10 MG/2 ML INJ IV PRN (15:30)
[2021-02-07] MEDS ORDERED: IBUPROFEN 400 MG TAB PO PRN (15:30)
[2021-02-07] MEDS ORDERED: LACTATED RINGERS 1,000 ML IV SCH (15:30)
[2021-02-07] MEDS ORDERED: METHYLERGONOVINE MALEATE 0.2 MG/ML VIAL IM ONE (15:32)
--- NOTE | 2021-02-07 15:46 | Operative Report ---
Operative Report Operative Report: Date of surgery: February 07, 2021 Preoperative diagnosis: Retained placenta Postoperative diagnosis: Same as above Procedure: Suction dilatation and curettage Surgeon: Sakina Rahman M.D. Anesthesia: Gen. endotracheal anesthesia Estimated blood loss: 200 mL Findings: Retained placenta Indication: 30-year-old who is status post spontaneous vaginal delivery of a previable fetus. The patient had findings of retained placenta. She was taken for the above procedure. Procedure: The patient was taken to the operating room and given general endotracheal anesthesia without complication. The patient is prepped and draped in a normal sterile fashion. A bivalve speculum was placed in the patient's vagina and a single-tooth tenaculums placed on the anterior lip of the cervix. The uterine cavity was then sounded. The cervical os was then dilated with graduated dilators. A number 12 curved cannula was placed to suction and found to be adequate. The cannula was then gently inserted into the dilated cervical os. Evacuation of the uterine contents were performed. A ring forcep was inserted through the dilated cervical os with removal of the placenta. Sharp curettage and endometrial surface was performed until cry was achieved. The cannula was then gently reinserted into the uterine cavity to evacuate any additional contents. After removal of the cannula there was no evidence of any active bleeding. The vaginal instruments were then removed atraumatically. The patient was then successfully extubated and taken to the recovery room in stable condition. All sponge laps and needle counts were correct x2. Pathology consisted of products of conception.
[2021-02-07] MEDS ORDERED: SODIUM CHLORIDE 0.9% IRR 1,500 ML BOTTLE IR ONE (15:50)
[2021-02-07] MEDS: HYDROmorphone 1 MG/1 ML INJ IV PRN ×2 (15:55→16:05)
[2021-02-07] MEDS ORDERED: HYDROcodone/ACETAMINOPHEN 5-325 MG TAB PO PRN (16:19)
[2021-02-07 17:20] VITALS: BP 119/67
== END 2021-02-07 17:19 | disposition home or self-care (01) ==
LOC: ED 07:51 → OR 15:44
PROVIDERS: ATTEND Obstetrics & Gynecology
DX: N93.8 Other specified abnormal uterine and vaginal bleeding (principal); J45.909 Unspecified asthma, uncomplicated; Z79.899 Other long term (current) drug therapy; Z98.890 Other specified postprocedural states; Z82.49 Family history of ischemic heart disease and other diseases of the circulatory system; Z83.3 Family history of diabetes mellitus
CPT/HCPCS: 36415; 58120; 76801; 80048; 84702; 85025; 86900; 86901; 88305; 99285; J1100; J1170; J2001; J2210; J2250; J2405; J2704; J2765; J3010; J7030; 76805; J1885

== ENCOUNTER 2021-08-07 20:07 | Emergency (ER) | payer MEDICAID ==
[2021-08-07 20:36] VITALS: BP 127/61
[2021-08-07] MEDS ORDERED: SODIUM CHLORIDE 0.9% 1000 ML 1,000 ML IV ONE (21:20)
[2021-08-07 21:46] LABS: Basophils % (Auto) 0.2 % (0.0-1.8); Eosinophils % (Auto) 0.7 % (0.0-4.3); Hematocrit 35.6 % (30.3-42.9); Hemoglobin 11.8 gm/dl (10.1-14.3); Mean Corpuscular HGB Conc 33 % (30-34); Mean Corpuscular Volume 95 fl (79-97); Monocytes # (Auto) 0.5 K/mm3 (0.0-0.8); Monocytes % (Auto) 8.7 % (0.0-7.3); Platelet Count 248 K/mm3 (140-440); Red Blood Count 3.76 M/mm3 (3.65-5.03); Red Cell Distribution Width 14.5 % (13.2-15.2)
[2021-08-07 22:28] LABS: Bacteria,Urine 1+ /HPF (Negative); Bilirubin,Urine NEG (Negative); Blood,Urine LG (Negative); Color,Urine Yellow (Yellow); Mucus,Urine FEW /HPF; Protein,Urine <15 mg/dL mg/dL (Negative); Urobilinogen,Urine < 2.0 mg/dL (<2.0)
[2021-08-07 22:30] LABS: INR 0.88 (0.87-1.13)
[2021-08-07 22:35] LABS: RBC,Urine > 182.0 /HPF (0.0-6.0)
[2021-08-07 22:36] LABS: HCG Qualitative,Urine Positive (Negative)
--- NOTE | 2021-08-08 00:26 | Ultrasound Report ---
TRANSABDOMINAL OB PELVIC ULTRASOUND INDICATION / CLINICAL INFORMATION: Vaginal bleeding. COMPARISON: None available. FINDINGS: There is a single intrauterine with an estimated sonographic gestational age of 11 weeks 5 days and an EDC of 02/21/22. Clinical dates are 12 weeks 5 days. The heart rate is 141 bpm. Amn iotic fluid volume is normal. The developing placenta is located in the posterior fundus and is free of the os. Neither ovary is seen. There is no evidence of adnexal mass or free fluid. IMPRESSION: Single viable 11 week 5 day intrauterine without complication. Signer Name: Isaiah Connell MD Signed: 08/08/2021 12:21 AM Workstation Name: [id number]
--- NOTE | 2021-08-08 00:38 | Emergency Department Report ---
ED HPI - General Chief complaint: Vaginal Bleeding Stated complaint: BLEEDING; Time Seen by Provider: 08/07/21 21:11 Source: patient Mode of arrival: Ambulatory Limitations: No Limitations - History of Present Illness Initial comments: . Vaginal bleeding started after having sex today. Tan pain nor discomfort. Complaint: vaginal bleeding -: Sudden, hour(s) Radiation: none Improves with: none Associated symptoms: denies other symptoms :: Yes OB History - Current : no complications OB History - Previous Pregnancies: no complications - Related Data Home Medications Medication Instructions Recorded Confirmed Last Taken Vitamin 1 tab PO DAILY 09/14/20 09/14/20 09/13/20 10:00 Previous Rx's Medication Instructions Recorded Last Taken Type HYDROcodone/APAP 5-325 [[place] 1 each PO Q6HR PRN #15 tablet 02/07/21 Unknown Rx 5/325] Ibuprofen [Motrin] 800 mg PO Q8HR PRN #30 tablet 02/07/21 Unknown Rx Allergies Allergy/AdvReac Type Severity Reaction Status Date / Time No Known Allergies Allergy Unverified 06/07/15 16:06 ED Review of Systems ROS: Stated complaint: BLEEDING; Other details as noted in HPI Constitutional: denies: chills, fever Eyes: denies: eye pain, eye discharge, vision change ENT: denies: ear pain, throat pain Respiratory: denies: cough, shortness of breath, wheezing Cardiovascular: denies: chest pain, palpitations Endocrine: no symptoms reported Gastrointestinal: denies: abdominal pain, nausea, diarrhea Genitourinary: denies: urgency, dysuria, discharge Musculoskeletal: denies: back pain, joint swelling, arthralgia Skin: denies: rash, lesions Neurological: denies: headache, weakness, paresthesias Psychiatric: denies: anxiety, depression Hematological/Lymphatic: denies: easy bleeding, easy bruising ED Past Medical Hx - Past Medical History Previous Medical History?: Yes Hx Hypertension: No Hx Congestive Heart Failure: No Hx Diabetes: No Hx Deep Vein Thrombosis: No Hx Renal Disease: Yes (one kidney has been removed) Hx Sickle Cell Disease: No Hx Seizures: No Hx Psychiatric Treatment: Yes (depression, ADHD) Hx Asthma: Yes (H/o Wilms Tumor, lobectomy ) Hx COPD: No Hx HIV: No Additional medical history: 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 - Surgical History Past Surgical History?: Yes Hx Coronary Stent: No Hx Open Heart Surgery: No Hx Pacemaker: No Hx Internal Defibrillator: No Hx Cholecystectomy: No Hx Appendectomy: No Hx Breast Surgery: No Additional Surgical History: Left lobectomy, Left kidney removal - Social History Smoking Status: Never Smoker Substance Use Type: Alcohol - Medications Home Medications: Home Medications Medication Instructions Recorded Confirmed Last Taken Type Vitamin 1 tab PO DAILY 09/14/20 09/14/20 09/13/20 10:00 History HYDROcodone/APAP 5-325 [[place] 1 each PO Q6HR PRN #15 tablet 02/07/21 Unknown Rx 5/325] Ibuprofen [Motrin] 800 mg PO Q8HR PRN #30 tablet 02/07/21 Unknown Rx ED Physical Exam - General Limitations: No Limitations General appearance: alert, in no apparent distress - Head Head exam: Present: atraumatic, normocephalic - Eye Eye exam: Present: normal appearance - ENT ENT exam: Present: mucous membranes moist - Neck Neck exam: Present: normal inspection - Respiratory Respiratory exam: Present: normal lung sounds bilaterally. Absent: respiratory distress - Cardiovascular Cardiovascular Exam: Present: regular rate, normal rhythm. Absent: systolic murmur, diastolic murmur, rubs, gallop - GI/Abdominal GI/Abdominal exam: Present: soft, normal bowel sounds - Extremities Exam Extremities exam: Present: normal inspection - Back Exam Back exam: Present: normal inspection - Neurological Exam Neurological exam: Present: alert, oriented X3 - Psychiatric Psychiatric exam: Present: normal affect, normal mood - Skin Skin exam: Present: warm, dry, intact, normal color. Absent: rash ED Course Vital Signs 08/07/21 20:34 Temperature 98.3 F Pulse Rate 88 Respiratory 18 Rate Blood Pressure 127/61 O2 Sat by Pulse 100 Oximetry - Reevaluation(s) Reevaluation #1: 08/08/21 00:36 vss , h.h stable , us showed 11 weeeks 5 days IUP no complication ED Medical Decision Making - Lab Data Result diagrams: 08/07/21 21:14 Critical care attestation.: If time is entered above; I have spent that time in minutes in the direct care of this critically ill patient, excluding procedure time. ED Disposition Clinical Impression: Threatened , Vaginal bleeding during Disposition: 01 HOME / SELF CARE / HOMELESS Is pt being admited?: No Does the pt Need Aspirin: No Condition: Stable Instructions: Threatened Miscarriage, Vaginal Bleeding During , First Trimester Referrals: PRIMARY CARE, [Primary Care Provider] - 3-5 Days
== END 2021-08-08 00:40 | disposition home or self-care (01) ==
LOC: ED 20:07
DX: O20.0 Threatened abortion (principal); Z3A.11 11 weeks gestation of pregnancy; J45.909 Unspecified asthma, uncomplicated; N28.9 Disorder of kidney and ureter, unspecified; F32.A Depression, unspecified; Z79.899 Other long term (current) drug therapy; Z98.890 Other specified postprocedural states
CPT/HCPCS: 36415; 76801; 81001; 81025; 84702; 85025; 85610; 86900; 86901; 96360; 99284; J7030; 96365; Q0162